=== PATIENT | male | born 1955 | race African-American/Black ===

== ENCOUNTER 2024-12-31 00:57 | Inpatient (IN) | payer OTHER ==
[2024-12-31] MEDS: SODIUM CHLORIDE 1,000 ML IV ONE (01:23)
[2024-12-31] MEDS: ONDANSETRON 4 MG/2 ML VIAL IVPUSH ONE (01:23)
[2024-12-31 03:25] LABS: HEMATOCRIT 50.9 % (35.4-49); HEMOGLOBIN 17.2 GM/dL (11.7-16.9); MCH 30.1 pg (25.7-33.7); MCHC 33.9 g/dl (32.0-35.9); MEAN CELL VOLUME 88.9 fl (80-96); MEAN PLT VOLUME 8.6 fl (7.5-11.1); PLATELET COUNT 410 10^3/uL (134-434); RBC 5.73 M/mm3 (4.00-5.60); WHITE BLOOD COUNT 15.8 K/mm3 (4.0-10.0)
[2024-12-31 03:47] LABS: CALCIUM 10.5 mg/dL (8.5-10.1)
[2024-12-31 03:48] LABS: ALBUMIN 4.5 g/dl (3.4-5.0); BLOOD UREA NITROGEN 10.7 mg/dL (7-18); MAGNESIUM 1.9 mg/dL (1.8-2.4)
[2024-12-31 03:51] LABS: CREATININE 1.5 mg/dL (0.55-1.3)
[2024-12-31 03:52] LABS: BILIRUBIN,TOTAL 0.6 mg/dL (0.2-1); TOT PROT 8.6 g/dl (6.4-8.2)
[2024-12-31 04:15] LABS: LACTIC ACID 3.6 mmol/L (0.4-2.0)
[2024-12-31] MEDS ORDERED: ONDANSETRON 4 MG/2 ML VIAL ONE (04:34)
[2024-12-31] MEDS ORDERED: dilTIAZem HCL 30 MG TABLET ONE (04:34)
[2024-12-31] MEDS: ONDANSETRON 4 MG/2 ML VIAL IVPB ONE (04:36)
[2024-12-31] MEDS ORDERED: ACETAMINOPHEN INJECTION 100 ML ONE (04:40)
[2024-12-31] MEDS: ACETAMINOPHEN 1000 MG/100 ML BAG IVPB ONE (04:42)
[2024-12-31 04:54] LABS: HIV INTERPRETATION NEGATIVE (NEGATIVE)
[2024-12-31] MEDS: dilTIAZem HCL 60 MG TABLET PO ONE (05:30)
[2024-12-31] MEDS ORDERED: morphine SULFATE 4 MG/ML VIAL ONE ×2 (06:54→08:07)
[2024-12-31] MEDS: morphine CARPU-JECT 4 MG/1 ML DISP.SYRIN IVPUSH ONE ×2 (06:57→08:18)
[2024-12-31 07:11] LABS: LACTIC ACID 2.3 mmol/L (0.4-2.0)
[2024-12-31 07:39] LABS: HEMATOCRIT 49.6 % (35.4-49); HEMOGLOBIN 16.7 GM/dL (11.7-16.9); MCH 30.1 pg (25.7-33.7); MCHC 33.6 g/dl (32.0-35.9); MEAN CELL VOLUME 89.8 fl (80-96); MEAN PLT VOLUME 8.4 fl (7.5-11.1); PLATELET COUNT 397 10^3/uL (134-434); RBC 5.52 M/mm3 (4.00-5.60); RDW 14.1 % (11.9-15.9); WHITE BLOOD COUNT 16.7 K/mm3 (4.0-10.0)
[2024-12-31 07:43] LABS: ANION GAP 5 mmol/L (4-13); BLOOD UREA NITROGEN 9.6 mg/dL (7-18); CHLORIDE 103 mmol/L (98-107); CO2 30 mmol/L (21-32); GLUCOSE,RANDOM 163 mg/dL (74-106); POTASSIUM 3.7 mmol/L (3.5-5.1); SODIUM 138 mmol/L (136-145)
[2024-12-31 07:44] LABS: CALCIUM 10.1 mg/dL (8.5-10.1)
[2024-12-31] MEDS: SODIUM CHLORIDE 1,000 ML IV STA ×2 (08:17→11:31)
[2024-12-31 09:24] LABS: ANISOCYTOSIS 0; MACROCYTOSIS 0
[2024-12-31] MEDS ORDERED: hydrALAZINE HCL 20 MG/ML VIAL IVPB PRN (12:04)
[2024-12-31] MEDS: ACETAMINOPHEN 1000 MG/100 ML BAG IVPB PRN (13:15)
[2024-12-31] MEDS: hydrALAZINE HCL 20 MG/ML VIAL IVPB PRN ×2 (13:15→16:32)
[2024-12-31] MEDS: amLODIPine BESYLATE 5 MG TABLET (FP) PO ONE ×2 (13:56→16:33)
[2024-12-31 14:09] VITALS: BMI 31.4
[2024-12-31 15:07] LABS: CHOLESTEROL 190 mg/dL (50-200); CREATININE 1.4 mg/dL (0.55-1.3)
[2024-12-31 15:10] LABS: LDL CHOLESTEROL (ONLY SJRH) 127 mg/dL (5-100)
[2024-12-31 15:11] LABS: HDL CHOLESTEROL 46 mg/dL (40-60)
[2024-12-31] MEDS: hydrALAZINE HCL 10 MG TABLET PO ONE (18:29)
[2024-12-31 20:54] LABS: PHENCYCLIDINE,URINE NEGATIVE (NEGATIVE)
[2024-12-31 20:55] LABS: COCAINE, UR NEGATIVE (NEGATIVE); METHADONE, UR NEGATIVE (NEGATIVE); URINE BARBITURATES NEGATIVE (NEGATIVE); URINE BENZODIAZEPINES NEGATIVE (NEGATIVE)
[2024-12-31 21:03] LABS: OPIATES, URI POSITIVE (NEGATIVE); URINE AMPHETAMINES NEGATIVE (NEGATIVE)
[2025-01-01] MEDS: ONDANSETRON 4 MG/2 ML VIAL IVPUSH PRN (04:41)
[2025-01-01] MEDS: KETOROLAC TROMETHAMINE 30 MG/1 ML VIAL IVPUSH PRN (05:00)
[2025-01-01] MEDS: NITROGLYCERIN 2% OINTMENT - 1GM PACKET TD ONE (06:28)
[2025-01-01] MEDS: morphine CARPU-JECT 2 MG/1 ML DISP.SYRIN IVPUSH ONE (06:36)
[2025-01-01] MEDS: METOCLOPRAMIDE HCL INJECTION 10 MG/2 ML VIAL IVPUSH ONE (06:40)
[2025-01-01] MEDS: hydrALAZINE HCL 10 MG TABLET PO SCH (07:54)
[2025-01-01] MEDS: amLODIPine BESYLATE 10 MG TABLET (FP) PO ONE (07:54)
[2025-01-01] MEDS: LABETALOL HCL 5 MG/1 ML (100MG/20 ML VIAL) IVPB ONE (07:54)
[2025-01-01 08:43] LABS: ALBUMIN 4.8 g/dl (3.4-5.0); BILIRUBIN,TOTAL 0.9 mg/dl (0.2-1); CALCIUM 10.1 mg/dl (8.5-10.1); CREATININE 1.6 mg/dl (0.6-1.3); MAGNESIUM 1.9 mg/dL (1.8-2.4); PHOSPHOROUS 3.4 (2.5-4.9); POTASSIUM 4.5 mmol/L (3.5-5.1); TOT PROT 7.6 g/dl (6.4-8.2)
[2025-01-01] MEDS: PROCHLORPERAZINE INJECTION 10 MG/2 ML VIAL IVPB ONE (08:49)
[2025-01-01] MEDS: LACTATED RINGERS SOLUTION 1,000 ML/1,000 ML INFUS.BAG IV SCH (08:49)
[2025-01-01 09:20] LABS: BASO % 0.2 % (0-2.0); EOS % 0.1 % (0-4.5); HEMATOCRIT 52.5 % (35.4-49); HEMOGLOBIN 17.5 GM/dL (11.7-16.9); LYMPH % 9.3 % (8-40); MCH 30.2 pg (25.7-33.7); MCHC 33.3 g/dl (32.0-35.9); MEAN CELL VOLUME 90.6 fl (80-96); MEAN PLT VOLUME 8.9 fl (7.5-11.1); MONO % 9.3 % (3.8-10.2); NEUT % 81.1 % (42.8-82.8); PLATELET COUNT 397 10^3/uL (134-434); RDW 14.3 % (11.9-15.9); WHITE BLOOD COUNT 18.7 K/mm3 (4.0-10.0)
[2025-01-01] MEDS: CEFTRIAXONE 1 G/50 ML PREMIX 50 ML IVPB ONE (13:10)
[2025-01-01] MEDS: hydrALAZINE HCL 25 MG TABLET (FP) PO SCH (13:44)
[2025-01-01] MEDS: ACETAMINOPHEN 1000 MG/100 ML BAG IVPB PRN (17:11)
[2025-01-01] MEDS: morphine SULFATE 4 MG/ML VIAL IVPUSH ONE (20:00)
[2025-01-02] MEDS: PROCHLORPERAZINE INJECTION 10 MG/2 ML VIAL IVPB PRN (01:03)
[2025-01-02 06:47] LABS: BASO % 0.3 % (0-2.0); EOS % 0.1 % (0-4.5); HEMATOCRIT 50.7 % (35.4-49); LYMPH % 6.8 % (8-40); MCHC 33.5 g/dl (32.0-35.9); MEAN CELL VOLUME 89.5 fl (80-96); MEAN PLT VOLUME 8.5 fl (7.5-11.1); MONO % 9.5 % (3.8-10.2); NEUT % 83.3 % (42.8-82.8); PLATELET COUNT 392 10^3/uL (134-434); RBC 5.67 M/mm3 (4.00-5.60); RDW 14.3 % (11.9-15.9); WHITE BLOOD COUNT 18.4 K/mm3 (4.0-10.0)
[2025-01-02 07:14] LABS: POTASSIUM 3.4 mmol/L (3.5-5.1)
[2025-01-02 07:20] LABS: CALCIUM 9.5 mg/dL (8.5-10.1)
[2025-01-02 07:21] LABS: ALBUMIN 3.8 g/dl (3.4-5.0); MAGNESIUM 1.9 mg/dL (1.8-2.4)
[2025-01-02 07:23] LABS: BILIRUBIN,TOTAL 0.8 mg/dL (0.2-1); CREATININE 1.5 mg/dL (0.55-1.3)
[2025-01-02 07:24] LABS: PHOSPHOROUS 3.2 mg/dL (2.5-4.9); TOT PROT 7.1 g/dl (6.4-8.2)
[2025-01-02] MEDS: CEFTRIAXONE 1 G/50 ML PREMIX 50 ML IVPB SCH (10:13)
[2025-01-02] MEDS ORDERED: ENOXAPARIN NA (PORCINE) 40 MG/0.4 ML DISP.SYRIN SQ SCH (16:30)
[2025-01-02] MEDS: amLODIPine BESYLATE 5 MG TABLET (FP) PO SCH (17:40)
[2025-01-02] MEDS: ACETAMINOPHEN 1000 MG/100 ML BAG IVPB PRN (17:40)
[2025-01-02] MEDS: MELATONIN 1 MG TABLET PO SCH (21:16)
[2025-01-02] MEDS: ENOXAPARIN NA (PORCINE) 40 MG/0.4 ML DISP.SYRIN SQ SCH (21:16)
[2025-01-03 06:30] LABS: BASO % 1.3 % (0-2.0); HEMATOCRIT 49.1 % (35.4-49); HEMOGLOBIN 16.3 GM/dL (11.7-16.9); LYMPH % 8.2 % (8-40); MCHC 33.3 g/dl (32.0-35.9); MEAN CELL VOLUME 90.2 fl (80-96); MEAN PLT VOLUME 8.4 fl (7.5-11.1); MONO % 10.4 % (3.8-10.2); NEUT % 80.1 % (42.8-82.8); PLATELET COUNT 363 10^3/uL (134-434); RBC 5.45 M/mm3 (4.00-5.60); RDW 14.1 % (11.9-15.9); WHITE BLOOD COUNT 17.1 K/mm3 (4.0-10.0)
[2025-01-03 06:55] LABS: POTASSIUM 3.8 mmol/L (3.5-5.1)
[2025-01-03 06:57] LABS: ALBUMIN 3.6 g/dl (3.4-5.0); BLOOD UREA NITROGEN 11.8 mg/dL (7-18)
[2025-01-03 07:00] LABS: CREATININE 1.5 mg/dL (0.55-1.3)
[2025-01-03 07:02] LABS: BILIRUBIN,TOTAL 0.7 mg/dL (0.2-1); TOT PROT 6.6 g/dl (6.4-8.2)
[2025-01-03 19:27] LABS: BASO % 0.6 % (0-2.0); EOS % 0.3 % (0-4.5); HEMATOCRIT 47.5 % (35.4-49); HEMOGLOBIN 16.3 GM/dL (11.7-16.9); MCH 30.4 pg (25.7-33.7); MCHC 34.3 g/dl (32.0-35.9); MEAN CELL VOLUME 88.6 fl (80-96); MONO % 10.5 % (3.8-10.2); NEUT % 78.6 % (42.8-82.8); PLATELET COUNT 338 10^3/uL (134-434); RBC 5.35 M/mm3 (4.00-5.60); RDW 14.4 % (11.9-15.9); WHITE BLOOD COUNT 13.5 K/mm3 (4.0-10.0)
[2025-01-03 19:34] LABS: INR 1.16 (0.83-1.09); PROTHROMBIN TIME (PATIENT) 12.8 SEC (9.7-13.0)
[2025-01-03] MEDS: ACETAMINOPHEN 1000 MG/100 ML BAG IVPB ONE (21:10)
[2025-01-03] MEDS: PANTOPRAZOLE SODIUM 40 MG VIAL IVPUSH SCH (21:10)
[2025-01-04 07:05] LABS: INR 1.19 (0.83-1.09); PROTHROMBIN TIME (PATIENT) 13.1 SEC (9.7-13.0)
[2025-01-04 07:08] LABS: POTASSIUM 3.6 mmol/L (3.5-5.1)
[2025-01-04 07:11] LABS: BLOOD UREA NITROGEN 10.8 mg/dL (7-18); CALCIUM 8.7 mg/dL (8.5-10.1); MAGNESIUM 1.9 mg/dL (1.8-2.4)
[2025-01-04 07:12] LABS: ALBUMIN 3.2 g/dl (3.4-5.0)
[2025-01-04 07:14] LABS: CREATININE 1.4 mg/dL (0.55-1.3)
[2025-01-04 07:15] LABS: BILIRUBIN,TOTAL 0.7 mg/dL (0.2-1); TOT PROT 5.9 g/dl (6.4-8.2)
[2025-01-04 07:17] LABS: BASO % 0.6 % (0-2.0); EOS % 1.2 % (0-4.5); HEMATOCRIT 44.6 % (35.4-49); LYMPH % 16.6 % (8-40); MCHC 33.6 g/dl (32.0-35.9); MEAN CELL VOLUME 89.3 fl (80-96); MEAN PLT VOLUME 8.1 fl (7.5-11.1); MONO % 11.3 % (3.8-10.2); NEUT % 70.3 % (42.8-82.8); PLATELET COUNT 310 10^3/uL (134-434); RBC 4.99 M/mm3 (4.00-5.60); RDW 13.8 % (11.9-15.9); WHITE BLOOD COUNT 10.5 K/mm3 (4.0-10.0)
[2025-01-04] MEDS ORDERED: hydrALAZINE HCL 25 MG TABLET (FP) PO SCH (10:04)
[2025-01-04] MEDS: SIMETHICONE 80 MG TAB.CHEW (FP) PO PRN (19:32)
[2025-01-04] MEDS: hydrALAZINE HCL 25 MG TABLET (FP) PO SCH (21:41)
[2025-01-05 06:18] VITALS: RESP 18
[2025-01-05 07:31] LABS: BASO % 0.9 % (0-2.0); EOS % 2.5 % (0-4.5); HEMATOCRIT 44.8 % (35.4-49); HEMOGLOBIN 15.1 GM/dL (11.7-16.9); LYMPH % 16.4 % (8-40); MCH 30.1 pg (25.7-33.7); MCHC 33.7 g/dl (32.0-35.9); MEAN CELL VOLUME 89.4 fl (80-96); MEAN PLT VOLUME 8.3 fl (7.5-11.1); MONO % 12.1 % (3.8-10.2); NEUT % 68.1 % (42.8-82.8); PLATELET COUNT 294 10^3/uL (134-434); RBC 5.01 M/mm3 (4.00-5.60); WHITE BLOOD COUNT 10.5 K/mm3 (4.0-10.0)
[2025-01-05 07:50] LABS: POTASSIUM 3.5 mmol/L (3.5-5.1)
[2025-01-05 07:57] LABS: CALCIUM 8.4 mg/dL (8.5-10.1)
[2025-01-05 07:58] LABS: ALBUMIN 3.1 g/dl (3.4-5.0); BLOOD UREA NITROGEN 9.9 mg/dL (7-18); MAGNESIUM 2.1 mg/dL (1.8-2.4)
[2025-01-05 08:01] LABS: CREATININE 1.4 mg/dL (0.55-1.3)
[2025-01-05 08:02] LABS: BILIRUBIN,TOTAL 0.6 mg/dL (0.2-1); TOT PROT 5.7 g/dl (6.4-8.2)
[2025-01-05] MEDS: amLODIPine BESYLATE 5 MG TABLET (FP) PO SCH (09:45)
[2025-01-05] MEDS: metroNIDAZOLE 250 MG TABLET PO SCH (09:47)
[2025-01-05] MEDS: ACETAMINOPHEN 325 MG TABLET (FP) PO PRN (09:49)
[2025-01-05 14:41] VITALS: BP 114/68; PULSE 75; TEMP 99.5
== END 2025-01-05 17:55 | disposition home or self-care (01) | DRG 392 ==
LOC: FER 00:57 → FM/S 12:07 → OBSVTOIN 01-01 07:21 → J4S 01-01 16:19
PROVIDERS: ADMIT Internal Medicine; ATTEND Nurse Practitioner Family
DX: K52.9 Noninfective gastroenteritis and colitis, unspecified (principal); I24.89 Other forms of acute ischemic heart disease; K92.2 Gastrointestinal hemorrhage, unspecified; A05.9 Bacterial foodborne intoxication, unspecified; E86.0 Dehydration; I16.0 Hypertensive urgency
CPT/HCPCS: 36415; 70450-TC; 71045-TC-FY; 74176-TC; 80048; 80053; 80061; 80307; 82024; 82088; 82272; 82533; 82550; 82553; 83036; 83605; 83735; 84100; 84244; 84436; 84439; 84443; 84484; 85025; 85027; 85610; 85651; 86140; 86803; 86850; 86900; 86901; 87389; 93005; 93306-TC; 99285-25; G0378; J0131